=== PATIENT | female | born 1980 | race Caucasian/White ===

== ENCOUNTER → 2020-09-10 | Outpatient (CLI) | payer OTHER ==
[~2020-09-10] MED LIST: ASPI500T10 PO
--- NOTE | 2020-09-10 20:12 | RAD ---
EXAM: 3 views of the right wrist DATE: 09/10/2020 7:23 PM INDICATION: Reason: INJURY / Spl. Instructions: / History: COMPARISON: No Prior FINDINGS: No acute fracture or dislocation. Joint spaces are preserved without significant degenerative/prolife rative change. No significant soft tissue swelling. Ulnar minus variance. Lunate is normal in appeara nce. No sclerosis, cystic change or collapse. Mild bowing of the pronator fat pad. IMPRESSION: 1. Mild bowing of the pronator fat pad however no definite acute fracture or dislocation. If there i s persistent clinical concern for fracture, follow-up radiographs in 10-14 days is recommended. 2. Ulnar minus variance with grossly normal appearance of the lunate. Electronically signed by: Som Pérez MD (09/10/2020 8:10 PM) [facility]
== END ==
LOC: RAD 19:04
PROVIDERS: ATTEND Nurse Practitioner Family
DX: M25.531 Pain in right wrist (principal)
CPT/HCPCS: 73110